=== PATIENT | female | born 2000 | race Caucasian/White ===

== ENCOUNTER 2021-01-13 13:57 | Emergency (ER) | payer OTHER ==
[~2021-01-13 13:57] MED LIST: ATENOLOL25 MG PO; EPIPEN0.3 MG/0.3 IM; LEVAQUIN500 MG PO; MACROBID100 MG PO; NORCO 5-325 TA1 EACH PO; OMEPRAZOLE 20MG20 MG PO; ONDANSETRON ODT4 MG PO; PEPCID AC20 MG PO; PRILOSEC20 MG PO; PROZAC20 MG PO; XANAX0.25 M1 PO; XANAX0.5 MG PO; ZOFRAN4 M1 PO; ZOFRAN8 MG PO
[2021-01-13] MEDS ORDERED: MOTRIN600 MG PO (14:56)
== END 2021-01-13 15:20 | disposition home or self-care (01) ==
LOC: FER 13:57
DX: S03.00XA Dislocation of jaw, unspecified side, initial encounter (principal); X58.XXXA Exposure to other specified factors, initial encounter
CPT/HCPCS: 99152; 99153

== ENCOUNTER 2021-04-04 12:04 | Emergency (ER) | payer OTHER ==
[~2021-04-04 12:04] MED LIST changes: +MOTRIN600 MG PO
[2021-04-04 13:45] LABS: BASOPHIL 0.6 % (0-2); EOSINOPHIL 1.1 % (0-5); HCT 41.3 % (37.0-47.0); HGB 13.6 g/dl (12.5-16.0); LYMPHOCYTE 31.3 % (15-48); MCH 30.4 pg (25.0-31.0); MCHC 32.9 g/dL (32.0-36.0); MCV 92.4 fL (78.0-100.0); MONOCYTE 7.5 % (0-12); MPV 8.9 fL (6.0-9.5); NEUTROPHIL 59.2 % (41-80); NRBC 0; PLT 346 K/uL (150-400); RBC 4.47 M/uL (4.20-5.40); RDW 12.9 % (11.5-14.0); WBC 6.2 K/uL (4.0-10.5)
[2021-04-04 14:10] LABS: ALBUMIN 3.6 g/dL (3.4-5.0); BILIRUBIN - TOTAL 0.4 mg/dL (0.2-1.0); BUN/CREAT RATIO (CALC) 14.3 RATIO; CREATININE 0.7 mg/dL (0.51-0.95); GLOBULIN (CALCULATION) 3.8 g/dL; POTASSIUM 3.9 mmol/L (3.5-5.1); TOTAL PROTEIN 7.4 g/dL (6.4-8.2)
[2021-04-04 14:14] LABS: BILIRUBIN NEGATIVE (NEGATIVE); BLOOD TRACE-INTACT Ery/uL (NEGATIVE); CLARITY CLEAR (CLEAR); COLOR YELLOW (YELLOW); GLUCOSE (U) NORMAL (NORMAL); LEUKOCYTES NEGATIVE Leu/uL (NEGATIVE); NITRITE NEGATIVE (NEGATIVE); PROTEIN NEGATIVE (NEGATIVE); UROBILINOGEN 0.2 mg/dL (0.2-1.0)
[2021-04-04 14:17] LABS: AMPHETAMINES NEGATIVE (NEGATIVE); BARBITURATES NEGATIVE (NEGATIVE); ECSTASY (MDMA) NEGATIVE (NEGATIVE); MARIJUANA (THC) NEGATIVE (NEGATIVE); METHADONE NEGATIVE (NEGATIVE); OPIATES NEGATIVE (NEGATIVE); OXYCODONE NEGATIVE (NEGATIVE)
== END 2021-04-04 16:23 | disposition home or self-care (01) ==
LOC: FER 12:04
PROVIDERS: Emergency Medicine
DX: R10.84 Generalized abdominal pain (principal); R11.2 Nausea with vomiting, unspecified; J45.909 Unspecified asthma, uncomplicated; Z88.6 Allergy status to analgesic agent; Z88.3 Allergy status to other anti-infective agents
CPT/HCPCS: 36415; 80053; 80305; 81001; 85025; J2270; J2405; J7030; Q9967

== ENCOUNTER 2021-07-03 21:50 | Emergency (ER) | payer OTHER ==
[2021-07-04] MEDS ORDERED: NORCO 5-325 TA1 EACH PO (02:29)
== END 2021-07-04 03:00 | disposition home or self-care (01) ==
LOC: FER 21:50
DX: S80.02XA Contusion of left knee, initial encounter (principal); Z88.6 Allergy status to analgesic agent; Z88.8 Allergy status to other drugs, medicaments and biological substances; W19.XXXA Unspecified fall, initial encounter; Y93.89 Activity, other specified; Y92.89 Other specified places as the place of occurrence of the external cause; Y99.0 Civilian activity done for income or pay
CPT/HCPCS: 73560; J1885

== ENCOUNTER 2021-07-31 13:37 | Emergency (ER) | payer OTHER ==
[~2021-07-31 13:37] MED LIST changes: +PREGABALIN25 MG PO
== END 2021-07-31 22:25 | disposition other institution (70) ==
LOC: FER 13:37
DX: S03.03XA Dislocation of jaw, bilateral, initial encounter (principal); J32.9 Chronic sinusitis, unspecified; Z88.6 Allergy status to analgesic agent; Z88.8 Allergy status to other drugs, medicaments and biological substances; X58.XXXA Exposure to other specified factors, initial encounter; Y93.89 Activity, other specified
CPT/HCPCS: 70486; 94762; 99151; J1170; J2060; J2405; J2704; J7030

== ENCOUNTER 2021-10-13 01:42 | Emergency (ER) | payer OTHER ==
[~2021-10-13 01:42] MED LIST changes: +PREGABALIN50 MG PO
[2021-10-13] MEDS ORDERED: DIAZEPAM 5MG TAB5 MG PO (03:26)
== END 2021-10-13 04:45 | disposition home or self-care (01) ==
LOC: FER 01:42
DX: S03.02XA Dislocation of jaw, left side, initial encounter (principal); Z88.3 Allergy status to other anti-infective agents; Z88.6 Allergy status to analgesic agent
CPT/HCPCS: 94760; J2250

== ENCOUNTER 2021-11-23 21:27 | Emergency (ER) | payer OTHER ==
[~2021-11-23 21:27] MED LIST changes: +DIAZEPAM 5MG TAB5 MG PO; +PREGABALIN100 MG PO
[2021-11-24 00:21] LABS: BASOPHIL 0.5 % (0-2); EOSINOPHIL 0.9 % (0-5); HCT 41.7 % (37.0-47.0); HGB 13.5 g/dl (12.5-16.0); LYMPHOCYTE 31.8 % (15-48); MCH 30.5 pg (25.0-31.0); MCHC 32.4 g/dL (32.0-36.0); MCV 94.1 fL (78.0-100.0); MONOCYTE 5.2 % (0-12); MPV 8.7 fL (6.0-9.5); NRBC 0; PLT 384 K/uL (150-400); RBC 4.43 M/uL (4.20-5.40); RDW 13.2 % (11.5-14.0); WBC 8.7 K/uL (4.0-10.5)
[2021-11-24 00:39] LABS: ALBUMIN 3.7 g/dL (3.4-5.0); BILIRUBIN - TOTAL 0.3 mg/dL (0.2-1.0); BUN/CREAT RATIO (CALC) 12.3 RATIO; CREATININE 0.73 mg/dL (0.51-0.95); GLOBULIN (CALCULATION) 4.2 g/dL; POTASSIUM 3.8 mmol/L (3.5-5.1); TOTAL PROTEIN 7.9 g/dL (6.4-8.2)
[2021-11-24 01:45] LABS: BILIRUBIN NEGATIVE (NEGATIVE); BLOOD TRACE-INTACT Ery/uL (NEGATIVE); CLARITY CLEAR (CLEAR); COLOR YELLOW (YELLOW); GLUCOSE (U) NORMAL (NORMAL); LEUKOCYTES 1+ Leu/uL (NEGATIVE); NITRITE POSITIVE (NEGATIVE); PROTEIN NEGATIVE (NEGATIVE); SPECIFIC GRAVITY 1.025 (1.001-1.030); UROBILINOGEN 0.2 mg/dL (0.2-1.0)
[2021-11-24 01:51] LABS: BACTERIA 4+
[2021-11-24] MEDS ORDERED: PERCOCET 5-3251 EACH PO (03:58)
[2021-11-24] MEDS ORDERED: PHENERGAN25 M1 PO (03:59)
[2021-11-24] MEDS ORDERED: ONDANSETRON ODT4 MG PO (03:59)
[2021-11-24] MEDS ORDERED: BACTRIM DS TAB1 EACH PO (04:01)
== END 2021-11-24 05:05 | disposition home or self-care (01) ==
LOC: FER 21:27
PROVIDERS: Internal Medicine
DX: N12 Tubulo-interstitial nephritis, not specified as acute or chronic (principal); K59.00 Constipation, unspecified; Z88.6 Allergy status to analgesic agent; Z88.8 Allergy status to other drugs, medicaments and biological substances
CPT/HCPCS: 36415; 80053; 81001; 85025; 87076; 87088; 87186; J0696; J1170; J2405; J2550; J3010

== ENCOUNTER 2021-11-30 12:49 | Emergency (ER) | payer OTHER ==
[~2021-11-30 12:49] MED LIST changes: +AMITRIPTYLINE H10 MG PO; +BACTRIM DS TAB1 EACH PO; +OXYCODON-ACETA1 EAC1 PO; +PERCOCET 5-3251 EACH PO; +PHENERGAN25 M1 PO
[2021-11-30] MEDS ORDERED: BACLOFEN 10MG T10 MG PO (15:52)
[2021-11-30] MEDS ORDERED: PREDNISONE 20MG20 MG PO (15:52)
== END 2021-11-30 16:00 | disposition home or self-care (01) ==
LOC: FER 12:49
DX: M25.562 Pain in left knee (principal); G89.29 Other chronic pain; Z88.6 Allergy status to analgesic agent; Z88.8 Allergy status to other drugs, medicaments and biological substances
CPT/HCPCS: 96372; J1100; J1885

== ENCOUNTER 2021-12-17 13:02 | Emergency (ER) | payer OTHER ==
[~2021-12-17 13:02] MED LIST changes: +BACLOFEN 10MG T10 MG PO; +MEDROL 4MG DOSEP4 MG PO; +PREDNISONE 20MG20 MG PO
[2021-12-17] MEDS ORDERED: BACLOFEN 10MG T10 MG PO (15:19)
== END 2021-12-17 15:20 | disposition home or self-care (01) ==
LOC: FER 13:02
DX: M25.562 Pain in left knee (principal); M54.9 Dorsalgia, unspecified; M54.2 Cervicalgia; Z88.8 Allergy status to other drugs, medicaments and biological substances; W19.XXXA Unspecified fall, initial encounter; Y92.009 Unspecified place in unspecified non-institutional (private) residence as the place of occurrence of the external cause
CPT/HCPCS: 72125; 72131; J1100

== ENCOUNTER 2022-01-14 18:28 | Emergency (ER) | payer OTHER ==
[2022-01-14 20:17] LABS: BASOPHIL 0.5 % (0-2); EOSINOPHIL 1.6 % (0-5); HCT 39.2 % (37.0-47.0); HGB 12.9 g/dl (12.5-16.0); LYMPHOCYTE 28.8 % (15-48); MCH 30.7 pg (25.0-31.0); MCHC 32.9 g/dL (32.0-36.0); MCV 93.3 fL (78.0-100.0); MONOCYTE 7.7 % (0-12); MPV 8.9 fL (6.0-9.5); NRBC 0; PLT 370 K/uL (150-400); RDW 13.3 % (11.5-14.0); WBC 9.3 K/uL (4.0-10.5)
[2022-01-14 20:38] LABS: ALBUMIN 3.6 g/dL (3.4-5.0); ALKALINE PHOSHATASE 59 U/L (46-116); ALT 27 U/L (14-59); AST 19 U/L (15-37); BILIRUBIN - TOTAL 0.2 mg/dL (0.2-1.0); BUN 11 mg/dL (7-18); BUN/CREAT RATIO (CALC) 16.2 RATIO; CHLORIDE 104 mmol/L (98-107); CO2 (BICARBONATE) 24 mmol/L (21-32); CREATININE 0.68 mg/dL (0.51-0.95); GLOBULIN (CALCULATION) 3.6 g/dL; GLUCOSE 89 mg/dL (74-106); POTASSIUM 3.9 mmol/L (3.5-5.1); TOTAL PROTEIN 7.2 g/dL (6.4-8.2)
[2022-01-14 22:25] LABS: BILIRUBIN NEGATIVE (NEGATIVE); BLOOD TRACE-INTACT Ery/uL (NEGATIVE); CLARITY CLEAR (CLEAR); COLOR YELLOW (YELLOW); GLUCOSE (U) NORMAL (NORMAL); LEUKOCYTES 1+ Leu/uL (NEGATIVE); NITRITE NEGATIVE (NEGATIVE); PROTEIN NEGATIVE (NEGATIVE); SPECIFIC GRAVITY 1.015 (1.001-1.030); UROBILINOGEN 0.2 mg/dL (0.2-1.0)
[2022-01-14 22:31] LABS: AMPHETAMINES NEGATIVE (NEGATIVE); BARBITURATES NEGATIVE (NEGATIVE); ECSTASY (MDMA) NEGATIVE (NEGATIVE); MARIJUANA (THC) NEGATIVE (NEGATIVE); METHADONE NEGATIVE (NEGATIVE); OPIATES NEGATIVE (NEGATIVE); OXYCODONE NEGATIVE (NEGATIVE)
[2022-01-14 22:39] LABS: BACTERIA 1+; SQUAMOUS EPITHELIAL CELLS RARE; URINARY WBC RARE
== END 2022-01-14 22:50 | disposition home or self-care (01) ==
LOC: FER 18:28
PROVIDERS: Emergency Medicine; Nurse Practitioner Family
DX: R07.89 Other chest pain (principal); R42 Dizziness and giddiness; R06.02 Shortness of breath; I10 Essential (primary) hypertension; Z88.6 Allergy status to analgesic agent; Z88.3 Allergy status to other anti-infective agents; Z79.899 Other long term (current) drug therapy
CPT/HCPCS: 36415; 71045; 80053; 80305; 81001; 84484; 85025; 93005; J1200; J7030

== ENCOUNTER 2022-01-28 18:21 | Emergency (ER) | payer OTHER | END 2022-01-29 01:20 | disposition home or self-care (01) | LOC: FER 18:21 | DX: S03.03XA Dislocation of jaw, bilateral, initial encounter (principal); X58.XXXA Exposure to other specified factors, initial encounter | CPT/HCPCS: 96374; 96375; 96376; J1200; J2060; J2250; J3010; J3360 ==

== ENCOUNTER 2022-03-26 18:01 | Emergency (ER) | payer OTHER ==
[2022-03-26 20:18] LABS: BASOPHIL 0.5 % (0-2); EOSINOPHIL 1.5 % (0-5); HCT 42.2 % (37.0-47.0); HGB 13.8 g/dl (12.5-16.0); LYMPHOCYTE 29.6 % (15-48); MCH 30.5 pg (25.0-31.0); MCHC 32.7 g/dL (32.0-36.0); MCV 93.4 fL (78.0-100.0); MONOCYTE 8.7 % (0-12); MPV 9.1 fL (6.0-9.5); NEUTROPHIL 59.4 % (41-80); NRBC 0; PLT 375 K/uL (150-400); RBC 4.52 M/uL (4.20-5.40); RDW 12.2 % (11.5-14.0); WBC 7.3 K/uL (4.0-10.5)
[2022-03-26 20:19] LABS: BILIRUBIN NEGATIVE (NEGATIVE); BLOOD TRACE-INTACT Ery/uL (NEGATIVE); CLARITY CLEAR (CLEAR); COLOR YELLOW (YELLOW); GLUCOSE (U) NORMAL (NORMAL); LEUKOCYTES 2+ Leu/uL (NEGATIVE); NITRITE NEGATIVE (NEGATIVE); PROTEIN NEGATIVE (NEGATIVE); SPECIFIC GRAVITY 1.025 (1.001-1.030); UROBILINOGEN 0.2 mg/dL (0.2-1.0)
[2022-03-26 20:26] LABS: BACTERIA 2+; URINARY RBC RARE
[2022-03-26 20:30] LABS: AMPHETAMINES NEGATIVE (NEGATIVE); BARBITURATES NEGATIVE (NEGATIVE); ECSTASY (MDMA) NEGATIVE (NEGATIVE); MARIJUANA (THC) NEGATIVE (NEGATIVE); METHADONE NEGATIVE (NEGATIVE); OPIATES NEGATIVE (NEGATIVE); OXYCODONE NEGATIVE (NEGATIVE)
[2022-03-26 20:37] LABS: ALBUMIN 3.8 g/dL (3.4-5.0); BILIRUBIN - TOTAL 0.2 mg/dL (0.2-1.0); BUN/CREAT RATIO (CALC) 12.5 RATIO; CREATININE 0.8 mg/dL (0.51-0.95); GLOBULIN (CALCULATION) 4.1 g/dL; POTASSIUM 3.9 mmol/L (3.5-5.1); TOTAL PROTEIN 7.9 g/dL (6.4-8.2)
[2022-03-26] MEDS ORDERED: BACTRIM DS TAB1 EACH PO (23:20)
[2022-03-26] MEDS ORDERED: PYRIDIUM100 MG PO (23:20)
== END 2022-03-26 23:52 | disposition home or self-care (01) ==
LOC: FER 18:01
PROVIDERS: Emergency Medicine
DX: N39.0 Urinary tract infection, site not specified (principal); Z88.3 Allergy status to other anti-infective agents; Z88.8 Allergy status to other drugs, medicaments and biological substances
CPT/HCPCS: 36415; 80053; 80305; 81001; 84703; 85025; J1885; J2405; J7030